=== PATIENT | male | born 1955 | race Caucasian/White ===

== ENCOUNTER → 2020-09-16 07:55 | Outpatient (CLI) | payer MEDICARE, SELFPAY ==
[2020-09-16 08:37] LABS: Basophils % 0.4 % (0.1-2.0); Eosinophils # 0.1 K/mm3 (0.0-0.4); Hematocrit 38.9 % (42.0-52.0); Hemoglobin 13.3 g/dL (14.1-18.0); Lymphocytes # 1.1 K/mm3 (0.7-4.5); Lymphocytes % 17.6 % (10-50); Mean Corpuscular HGB Conc 34.3 g/dL (31.8-35.4); Mean Corpuscular Volume 90.5 fl (80-94); Mean Platelet Volume 6.8 fl (7.4-10.4); Monocytes # 0.6 K/mm3 (0.1-1.0); Monocytes % 9.1 % (1.7-9.3); Neutrophils # 4.6 K/mm3 (1.8-7.8); Neutrophils % 71.9 % (37.0-80.0); Platelet Count 288 K/mm3 (142-424); Red Cell Distribution Width 13.7 % (11.5-17.5); White Blood Count 6.4 K/mm3 (4.8-10.8)
[2020-09-16 09:10] LABS: Alanine Aminotransferase 47 U/L (12-78); Albumin Level 4.7 g/dl (3.5-5.0); Albumin/Globulin Ratio 1.8 (1.1-1.8); Alkaline Phosphatase 59 U/L (38-126); Aspartate Amino Transferase 43 U/L (17-59); Bilirubin,Total 0.4 mg/dl (0.2-1.3); Blood Urea Nitrogen 9 mg/dl (9-20); Calcium 9.5 mg/dl (8.4-10.2); Carbon Dioxide 34 mmol/L (22.0-30.0); Chloride 90 mmol/L (98-107); Chol/HDL Ratio 2.7 (1-3.5); Cholesterol 120 mg/dl (140-200); Estimated Glomerular Filt Rate 113 ml/min (>60); GFR (African American) 137 ML/MIN (>60); Globulin 2.6 g/dL (1.3-3.2); Glucose 138 mg/dl (74-100); HDL Cholesterol 45 mg/dl (40-60); Sodium 131 mmol/L (136-145); Total Protein,Serum 7.3 g/dl (6.3-8.2); Triglycerides 99 mg/dl (30-150); VLDL Cholesterol 20 mg/dL (0-40)
[2020-09-16 09:20] LABS: Direct LDL Cholesterol 59.11 mg/dL (100-129)
[2020-09-16 09:26] LABS: Hemoglobin A1C 7.2 % (4.0-6.0)
== END ==
PROVIDERS: PCP Internal Medicine Adolescent Medicine; Visit Provider Internal Medicine Adolescent Medicine
DX: I10 Essential (primary) hypertension (principal); E78.5 Hyperlipidemia, unspecified; E11.9 Type 2 diabetes mellitus without complications
CPT/HCPCS: 36415; 80053; 80061; 83036; 85025

== ENCOUNTER → 2022-01-19 09:12 | Outpatient (CLI) | payer MEDICARE, OTHER, SELFPAY ==
--- NOTE | 2022-01-19 09:19 | US_ITS ---
FINAL REPORT CLINICAL HISTORY: ABD PAIN FINDINGS: ABDOMINAL ULTRASOUND LIMITED: TECHNIQUE: Ultrasound images of the abdomen were obtained. FINDINGS: The liver is fatty infiltrated. The gallbladder is normal. The common duct is normal. The right kidney measures 10.7 cm in length and is normal in echogenicity without hydronephrosis. The left kidney measures 11.2 cm in length and is normal in echogenicity without hydronephrosis. There is a 1.9 cm left renal cyst. The spleen is unremarkable. IMPRESSION: Fatty liver. 1.9 cm left renal cyst. Reviewed, Interpreted and Dictated by Destin Mansfield III, MD Transcribed by Aki Knight Authenticated and [facility]
--- NOTE | 2022-01-19 09:55 | CA_ITS ---
FINAL REPORT TECHNIQUE: Ultrasound images of the deep venous system were obtained from the left groin to the calf veins. CLINICAL HISTORY: .chronic left leg edema with a HX- previous ruptured cyst in post popliteal area FINDINGS: The deep venous system is normally compressible. Normal flow is identified. IMPRESSION: No evidence of left lower extremity DVT. Reviewed, Interpreted and Dictated by Destin Mansfield III, MD Transcribed by Avelina Lynn Authenticated and [facility]
== END ==
PROVIDERS: PCP Internal Medicine Adolescent Medicine; Visit Provider Internal Medicine Adolescent Medicine
DX: R10.11 Right upper quadrant pain (principal); R60.0 Localized edema; M79.605 Pain in left leg
CPT/HCPCS: 76700; 93971

== ENCOUNTER 2022-12-15 06:39 | Day surgery (SDC) | payer MEDICARE, OTHER, SELFPAY ==
--- NOTE | 2022-12-12 09:16 | SUR.PREOP ---
Spoke with pt's brother, Blayne, who is guardian for pre-op phone call. Doesn't know medication dosages. Asked if could bring in a complete list on DOS, said he could do that.
[2022-12-15 07:02] VITALS: BP 157/96; PULSE 76; RESP 18; TEMP 36.3; O2SAT 96; BMI 25.2
--- NOTE | 2022-12-15 07:04 | EXP.ANES.CKL ---
[facility] Disclaimer: The information contained in this section may have been updated after the patient was seen, as this information can be updated by other users. Medical History Diabetes mellitus, type 2 Learning disabilities Surgical History History of hand surgery Family History Other Colon cancer Family history of hypertension Social History Smoking Status: Never smoker alcohol intake: never substance use type: denies use current occupational status: disabled Travel in the last 8 weeks: None household members: family housing: house lives independently: No education level: other service: No penitentiary: No caffeine: Yes special mookie needs: No agree to transfusion: No do you feel safe at home: Yes victim of physical abuse: No victim of emotional abuse: No victim of sexual abuse: No would you like helpful sources: No [facility] Anesthesia Checklist Patient Identification Patient Identification: Arm Band and Verbal (Name & ) Structural Data Admitted From: Home Planned Operative Procedure/s: Colonoscopy Consent for Planned Operative Procedure(s) Verified: Yes NPO Status Verified Time NPO: 00:00 Additional verifications Fingerstick Blood Glucose: 123 Airway Assessment Mallampati Score:: Class III C-Spine Mobility Assessed: Yes TMJ Mobility Assessed: Yes Dentition: Edentulous Neurological Assessment Level of Consciousness: Awake Hx Seizures: No Numbness or tingling in extremities: No Anesthesia Plan Anesthesia Risk discussed: Yes Anesthesia Plan: Verified ASA Class: III Anesthesia Type: MAC
[2022-12-15 07:20] LABS: POC Glucose,Bedside 123 (70-110)
[2022-12-15 07:26] VITALS: O2SAT 96
[2022-12-15 08:12] VITALS: BP 95/62; PULSE 62; RESP 17; TEMP 36.4; O2SAT 96
--- NOTE | 2022-12-15 08:13 | HMH.SCOPE ---
Procedure: Date: 12/15/22 Patient Date of :: 1955 Procedure Performed:: Total colonoscopy to terminal ileum with multiple polypectomy Indications:: Patient is a 67-year-old male with family history of colon cancer. Apparently his father of colon cancer at the age of 61. He is somewhat of a poor historian. He did undergo previous colonoscopy [id number] in [facility] several years ago. Exact details are unknown. He was scheduled for screening colonoscopy. Performing Provider:: Destin Robertson MD Referring Provider:: Quique Cochran MD Sedation:: MAC sedation Procedure:: Patient history was obtained and appropriate physical examination was performed. Patient's medications and allergies were reviewed. Informed consent was obtained after explaining the benefits, alternatives, and risks of the procedure including, but not limited to, bleeding, perforation, missed lesions, and adverse reaction to anesthesia medications. Patient was transported to endoscopy procedure room. Patient was connected to monitoring devices. Throughout the procedure the patient's blood pressure, pulse, and oxygen saturations were monitored continuously. Patient identification and planned procedure were verified by the staff. Patient was positioned in lateral decubitus position. Digital anorectal exam was performed. Variable stiffness Olympus colonoscope was inserted and advanced under direct visualization to the cecum. Adequacy of the colonic preparation was noted. The colonoscope was advanced a short distance into the terminal ileum. The colonoscope was then slowly withdrawn while carefully examining the color, texture, anatomy, and integrity of the mucosoa circumferentially. Within the rectum retroflexion was performed. Colonoscope was then withdrawn. . Prostate was uniformly enlarged. Preparation was good. He had profound pandiverticulosis most pronounced in the left colon. There were a couple of small polyps in the cecum 1 removed with cold cutting snare which appeared to be potentially lymphoid or hyperplastic. Another tiny diminutive adenomatous polyp removed with biopsy forceps in a piecemeal fashion. In the ascending colon there was a tiny diminutive polyp removed with biopsy forceps. In the hepatic flexure there was a small polyp removed with cold cutting snare. Sigmoid colon there was a small polyp removed with cold cutting snare. Retroflexion within the rectum revealed minimal hemorrhoid irritation. Findings:: Pandiverticulosis Polyps as noted above Recommendations:: Likely repeat colonoscopy 3 years given family history and polyps Complications:: None immediately apparent Estimated blood obtained (mL): 2 Colonoscopy Component Colonoscopy Component Was a colonoscopy performed during today's procedure?: Yes Recommended follow up colonoscopy of at least 10 years?: No If no, follow up colonoscopy recommended in ___ years?: Unclear Reason for not recommending >/= 10 yr follow-up interval?: Polyps. family history colon cancer
[2022-12-15 08:22] VITALS: BP 117/70; PULSE 68; RESP 17; O2SAT 98
[2022-12-15 08:32] VITALS: BP 121/83; PULSE 68; RESP 16; O2SAT 99
[2022-12-15 08:45] VITALS: BP 135/87; PULSE 60; RESP 17; O2SAT 100
== END 2022-12-15 08:50 | disposition home or self-care (01) ==
PROVIDERS: PCP Internal Medicine Adolescent Medicine; Visit Provider Surgery
PROC: 0DJD8ZZ Inspection of Lower Intestinal Tract, Via Natural or Artificial Opening Endoscopic (ICD-10-PCS; principal; 2022-12-15 07:30)
DX: Z12.11 Encounter for screening for malignant neoplasm of colon (principal); Z80.0 Family history of malignant neoplasm of digestive organs; D12.0 Benign neoplasm of cecum; D12.2 Benign neoplasm of ascending colon; D12.3 Benign neoplasm of transverse colon; D12.5 Benign neoplasm of sigmoid colon; N40.0 Benign prostatic hyperplasia without lower urinary tract symptoms; K57.30 Diverticulosis of large intestine without perforation or abscess without bleeding; E11.9 Type 2 diabetes mellitus without complications
CPT/HCPCS: 45380; 45385; 82962; 88305; J2704

== ENCOUNTER 2023-06-12 10:00 | Outpatient (RCR) | payer MEDICARE, OTHER, SELFPAY ==
--- NOTE | 2023-04-24 15:16 | HMH.PTOPWND ---
Rehab Outpt Wound Evaluation Rehab OP Wound Evaluation Start: 04/24/23 14:48 Freq: Status: Active Protocol: Document 04/24/23 15:06 PHOMACIE (Rec: 04/24/23 15:15 PHORNE [id number]) E-signed By Lenin Washington, PT Subjective/History History History This is the initial PT eval for Lenin Smith, 68 yowm who presents with L LE lymphedema x ~ 3-4 yrs. He reports, Something popped in my leg one time, and I couldn't walk on it and after that it started swelling like this. He is unsure of any particular injry that occured and is poor historian due to developmental disability. He has hx of DM, HTN, HLD. Subjective Subjective Pt reports no numbness or tingling and minimal discomfort in the foot only. 1 + pitting edema overlying moderate fibrotic edema from knee distally. New diagnosis of cancer in past 12 No months? Lymphedema Eval Classification of Lymphedema Secondary Lymphedema Yes Stemmer's sign Stemmer's Sign yes Stage of Lymphedema Lymphedema stages Stage II (Pitting edema, increased fibrosis w/ decreased pitting) Skin Changes Dry Skin Yes Skin Folds Yes Other Changes Yes Affected Extremities Areas Affected by Lymphedema/Edema Left Lower Extremity Manual Lymphatic Drainage Treatment Area MLD Treatment Area Left Lower Extremity Wound Problems/Impairments Impairments Problems/Impairmments Increased Edema,Lymphedema Present,Subjective C/O Pain, Impaired Self Care/Self Management Prognosis Rehab Potential Good Clinical Impression Consistent with Diagnosis Yes Short Term Goals Number of Weeks 2 Decrease Edema Yes: no pitting edema L LE Patient to Understand Lymphedema Yes Treatment and Exercises Decrease Girth Measurments by (cm) Yes: L LE total by 5 cm Long-Term Goals Number of Weeks 4 Decreased Palpation Tenderness Yes: 0/4 L LE Decrease Lymphedema Yes: Mild fibrotic edema L LE Patient to be Ind w/ HEP Yes Patient to be Ind w/ [place] Yes Compression Garments Patient to Adhere Lymphedema Precautions Yes Decrease Girth Measurments by (cm) Yes: L LE total by 20 cm Outpatient Therapy Plan of Care Treatment Plan May Include Therapeutic Exercise Including Home Yes Exercise Program Manual Therapy Techniques Yes Neuromuscular Re-education Yes Therapeutic Activities to Return to Yes Previous Functional/Work Level ADL/Self Care Education Yes Orthotics/Bracing/Splinting Yes Vasopneumatic Compression Pump Yes Manual Lymphatic Drainage Yes Eval/Re-Eval Yes Frequency Times per week 2 Duration Number of Weeks 4 Addendums This patient is a candidate for social No or vocational rehab? Patient/Guardian verbally acknowledges Yes understanding of treatment program and consents to further treatment? Patient/Guardian verbally acknowledges Yes understanding of diagnosis, prognosis and goals for treatment? Eval Complexity PT Charges 01445 - High Complexity PHYSICIAN CERTIFICATION: I certify the specified therapy services for Lenin Smith are required, authorized, and reviewed every 30 days.
--- NOTE | 2023-05-23 11:52 | HMH.RHREAS ---
Rehab Reassessment Rehab OP Re-assessment Start: 04/24/23 14:48 Freq: Status: Active Protocol: Document 05/23/23 11:46 [email or web address] (Rec: 05/23/23 11:52 PHOMACIE [id number]) E-signed By Lenin Washington, PT Rehab Re-assessment Subjective Subjective Pt reports, I feel a whole lot better. He has no c/o discomfot this date and minimal c/o heaviness in the L LE. Objective Objective Notes TTP: 0/4 L LE this date. Edema: Moderate Fibrotic edema in L LE, No pitting edema noted. Circumferential Measurements: L LE total is 201.8 cm Assessment Progress Assessment Progressing as Expected Assessment Notes Pt has shown significant reduction in the overall edema of his L LE with MLD and HEP. He continues to have edema increased despitesdaily ankle pumps, elevation of his L LE, and compression garment wear consistently. He continues to need skilled intervention to return to prior level of function. Patient goals met ST,2,3 LT Goals Not Met LT,3,4,5,6 Plan Plan Continue per initial POC. Frequency of Therapy 1-2 x/wk Duration of therapy 4 wks Time and Billing Re-Eval Time 13 Re-Eval Billing Units 0 PHYSICIAN CERTIFICATION: I certify the specified therapy services for Lenin Smith are required, authorized, and reviewed every 30 days.
== END 2023-06-12 11:10 | disposition home or self-care (01) ==
LOC: PT 10:00
PROVIDERS: PCP Internal Medicine Adolescent Medicine; Visit Provider Internal Medicine Adolescent Medicine
DX: I89.0 Lymphedema, not elsewhere classified (principal)
CPT/HCPCS: 97140; 97163; 97164

== ENCOUNTER 2023-10-26 09:00 | Outpatient (RCR) | payer MEDICARE, OTHER, SELFPAY ==
--- NOTE | 2023-07-25 14:22 | HMH.PTOPWND ---
Rehab Outpt Wound Evaluation Rehab OP Wound Evaluation Start: 07/25/23 13:50 Freq: Status: Active Protocol: Document 07/25/23 14:11 PHOMACIE (Rec: 07/25/23 14:21 PHORNE [id number]) E-signed By Lenin Washington, PT Subjective/History History History This is the initial PT eval for Lenin Smith, 68 yowm who presents with c/o worsening L LE edema for several mos. He has hx of chronic L LE lymphedema of the L LE for ~12 -13 yrs. He has no c/o pain at this time. He has been treated in our clinic previously with excellent results and he has a home lymphedema pump that he uses daily. Subjective Subjective Pain 0/10 and no TTP noted. 2+ pitting edema to L lower leg from mid-calf distally. New diagnosis of cancer in past 12 No months? Lymphedema Eval Stemmer's sign Stemmer's Sign yes Stage of Lymphedema Lymphedema stages Stage II (Pitting edema, increased fibrosis w/ decreased pitting) Skin Changes Dry Skin Yes Taut, Shiny Skin Yes Other Changes Yes Affected Extremities Areas Affected by Lymphedema/Edema Left Lower Extremity Lower Extremity Measurements Left MTP Measurement (cm) 23.9 Heel Measurement (cm) 35.2 10 cm Proximal to Lateral Malleoli 33.5 Measurement (cm) 20 cm Proximal to Lateral Malleoli 39.8 Measurement (cm) 30 cm Proximal to Lateral Malleoli 41.6 Measurement (cm) 40 cm Proximal to Lateral Malleoli 42.2 Measurement (cm) 50 cm Proximal to Lateral Malleoli 49.5 Measurement (cm) 60 cm Proximal to Lateral Malleoli 0 Measurement (cm) Lower Extremity Measurement Total (cm) 265.7 Manual Lymphatic Drainage Treatment Area MLD Treatment Area Left Lower Extremity Wound Problems/Impairments Impairments Problems/Impairmments Impaired Household Care, Increased Edema,Lymphedema Present,Impaired Self Care/ Self Management Prognosis Rehab Potential Good Clinical Impression Consistent with Diagnosis Yes Short Term Goals Number of Weeks 2 Decrease Edema Yes: 1+ pitting edema L LE Patient to Understand Lymphedema Yes Treatment and Exercises Decrease Girth Measurments by (cm) Yes: L LE total by 5 cm Alf Goals Number of Weeks 4 Decrease Edema Yes: no pitting edema L LE Decrease Lymphedema Yes: Mild fibrotic edema L LE Patient to be Ind w/ HEP Yes Patient to Adhere Lymphedema Precautions Yes Decrease Girth Measurments by (cm) Yes: L LE total by 20 cm Outpatient Therapy Plan of Care Treatment Plan May Include Therapeutic Exercise Including Home Yes Exercise Program Manual Therapy Techniques Yes Neuromuscular Re-education Yes Therapeutic Activities to Return to Yes Previous Functional/Work Level ADL/Self Care Education Yes Orthotics/Bracing/Splinting Yes Manual Lymphatic Drainage Yes Eval/Re-Eval Yes Frequency Times per week 2 Duration Number of Weeks 4 Addendums This patient is a candidate for social No or vocational rehab? Patient/Guardian verbally acknowledges Yes understanding of treatment program and consents to further treatment? Patient/Guardian verbally acknowledges Yes understanding of diagnosis, prognosis and goals for treatment? Eval Complexity PT Charges 66423 - High Complexity PHYSICIAN CERTIFICATION: I certify the specified therapy services for Lenin Smith are required, authorized, and reviewed every 30 days.
--- NOTE | 2023-08-21 10:07 | HMH.RHREAS ---
Rehab Reassessment Rehab OP Re-assessment Start: 07/25/23 13:50 Freq: Status: Active Protocol: Document 08/21/23 09:59 CAYDEN (Rec: 08/21/23 10:07 CAYDEN [id number]) E-signed By Lenin Washington, PT Rehab Re-assessment Subjective Subjective Pt reports no new c/o pain. He does states, My leg still feels heavy sometimes. Objective Objective Notes Circumferential Measurements: L LE total is 256.2 cm which is -9.5 cm since IE. Edema: 1+ pitting edema remains throughout the L lower leg with Mild fibrotic edema throughout the L LE. Assessment Progress Assessment Progressing as Expected Assessment Notes Pt continues to steadily decrease overall L LE lymphedema with CDT. He needs to continue to decrease pitting edema overall. He continues to need skilled therapy to return to prior level of function. Patient goals met ST,2,3 Goals Not Met LT,2,3,4,5 Plan Plan Continue per initial POC. Frequency of Therapy 2 x/wk Duration of therapy 4 wks Time and Billing Re-Eval Time 11 Re-Eval Billing Units 0 PHYSICIAN CERTIFICATION: I certify the specified therapy services for Lenin Smith are required, authorized, and reviewed every 30 days.
--- NOTE | 2023-09-18 11:10 | HMH.RHREAS ---
Rehab Reassessment Rehab OP Re-assessment Start: 07/25/23 13:50 Freq: Status: Active Protocol: Document 09/18/23 11:05 CAYDEN (Rec: 09/18/23 11:09 PHOMACIE Laptop) E-signed By Lenin Washington PT Rehab Re-assessment Subjective Subjective Pt has no c/o pain again this date, and no real discomfort. He reports his foot was more swollen last night for unknown reason, but no increased tenderness. He has been using his home lymphedema pump daily for ~ 1 hr each night. Objective Objective Notes Circumferential Measurements: L LE total is 258.7 cm which is -7.0 cm since IE. Edema: 1+ pitting edema remains throughout the L lower leg with Mild fibrotic edema throughout the L LE. Assessment Progress Assessment Progressing as Expected Assessment Notes Pt continues to steadily decrease overall L LE lymphedema with CDT, appears to need more compression during the day. He needs to continue to decrease pitting edema overall. He continues to need skilled therapy to return to prior level of function. Patient goals met ST,2,3 Goals Not Met LT,2,3,4,5 Plan Plan Continue per initial POC. Frequency of Therapy 1-2 x/wk Duration of therapy 4 wks Time and Billing Re-Eval Time 12 Re-Eval Billing Units 0 PHYSICIAN CERTIFICATION: I certify the specified therapy services for Lenin Smith are required, authorized, and reviewed every 30 days.
== END 2023-10-26 09:05 | disposition home or self-care (01) ==
LOC: PT 09:00
PROVIDERS: Visit Provider Internal Medicine Adolescent Medicine
DX: I89.0 Lymphedema, not elsewhere classified (principal)
CPT/HCPCS: 97140; 97163; 97164

== ENCOUNTER 2024-08-04 13:00 | Outpatient (RCR) | payer MEDICARE, OTHER, SELFPAY ==
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
== END 2024-08-04 23:59 | disposition home or self-care (01) ==
LOC: PT 13:00
PROVIDERS: PCP Internal Medicine Adolescent Medicine; Visit Provider Internal Medicine Adolescent Medicine
DX: I89.0 Lymphedema, not elsewhere classified (principal)
CPT/HCPCS: 97140; 97163

== ENCOUNTER 2024-09-10 14:30 | Outpatient (RCR) | payer MEDICARE, OTHER, SELFPAY ==
--- NOTE | 2024-08-29 15:03 | HMH.RHREAS ---
Rehab Reassessment Rehab OP Re-assessment Start: 08/13/24 14:43 Freq: Status: Active Protocol: Document 08/29/24 14:30 PHOMACIE (Rec: 08/29/24 14:56 PHORNE [id number]) E-signed By Lenin Washington, PT Rehab Re-assessment Subjective Subjective Caregiver reports patient has been wearing the nighttime garment every night and his foot has gone way down. No c/ o pain or discomfort in the L LE. Objective Objective Notes Circumferential Measurements: R LE total is 261.0 cm which is -16.2 cm since IE. Pain: 0/10 Edema: 1+ pitting edema to L lower leg with MILD fibrotic edema underlying. Assessment Progress Assessment Progressing as Expected Assessment Notes Pt presents this date with significant improvement in overall L LE lymphedema based on changes in circumferential measurements. He continues to have overall increased L LE edema which limits his ability to perform ADLs and safe ambulation without loss of balance. Skilled therapy services remain indicated to reduce overall edema and aid pt return to PLOF with all ADLs. Patient goals met ST/2 LT/4 Plan Plan Continue per initial POC. Frequency of Therapy 1 x/wk Duration of therapy 4 wks Time and Billing Re-Eval Time 12 Re-Eval Billing Units 0 Charge for PT reassessment? No PHYSICIAN CERTIFICATION: I certify the specified therapy services for Lenin Smith are required, authorized, and reviewed every 30 days.
== END 2024-09-10 23:59 | disposition home or self-care (01) ==
LOC: PT 14:30
PROVIDERS: PCP Internal Medicine Adolescent Medicine; Visit Provider Internal Medicine Adolescent Medicine
DX: I89.0 Lymphedema, not elsewhere classified (principal)
CPT/HCPCS: 97140

== ENCOUNTER 2024-09-24 14:00 | Outpatient (RCR) | payer MEDICARE, OTHER, SELFPAY | END 2024-09-24 23:59 | disposition home or self-care (01) | LOC: PT 14:00 | PROVIDERS: PCP Internal Medicine Adolescent Medicine; Visit Provider Internal Medicine Adolescent Medicine | DX: I89.0 Lymphedema, not elsewhere classified (principal) | CPT/HCPCS: 97140 ==